=== PATIENT | male | born 1970 | race Caucasian/White ===

== ENCOUNTER 2025-01-26 17:12 | Inpatient (IN) | payer BC, SELFPAY ==
[2025-01-26] VITALS (8 sets, daily range): BP systolic 118–154; BP diastolic 67–95; PULSE 63–98; RESP 14–18; TEMP 36.2–36.7; O2SAT 96–99; BMI 25.4
--- NOTE | 2025-01-26 18:05 | XRR_ITS ---
PROCEDURE INFORMATION: Exam: XR Chest Exam date and time: 01/26/2025 6:08 PM Age: 54 years old Clinical indication: Pain; Chest pressure; Additional info: Cp TECHNIQUE: Imaging protocol: Radiologic exam of the chest. Views: 1 view. COMPARISON: No relevant prior studies available. FINDINGS: Lungs: Unremarkable. No consolidation. Pleural spaces: Unremarkable. No pleural effusion. No pneumothorax. Heart/Mediastinum: Unremarkable. No cardiomegaly. Bones/joints: Ndui-ma-ekibmyme degenerative changes of vertebral bodies. Mild degenerative changes of the AC joint. Single-view. XR/XR chest 1V portable [id number] IMPRESSION: No definite acute infiltrate or effusion.
--- NOTE | 2025-01-26 18:05 | ECG_ITS ---
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
[2025-01-26 18:11] LABS: Hematocrit 43.2 % (37-53); Hemoglobin 14.10 g/dL (11.27-16.99); Mean Corpuscular HGB Conc 32.6 g/dL (30-55); Mean Corpuscular Hemoglobin 27.0 pg (27-33); Mean Corpuscular Volume 82.6 fl (82-101); Nucleated Red Blood Cells % 0 %; Platelet Count 232 10^3/cmm (157-399); Red Blood Count 5.23 10^6/uL (3.85-5.65); White Blood Count 10.12 10^3/uL (3.29-11.43)
[2025-01-26 18:28] LABS: Alanine Aminotransferase 43 U/L (0-41); Albumin Level 4.7 g/dL (3.5-5.2); Alkaline Phosphatase 82 U/L (40-130); Anion Gap 18.8 (5-19); Aspartate Amino Transferase 25 U/L (0-40); Blood Urea Nitrogen 14 mg/dL (6-20); Calcium 9.6 mg/dL (8.5-10.5); Carbon Dioxide 22 mmol/L (22-29); Chloride 104 mmol/L (98-107); Creatinine Clr Calc Pharmacy 131.0440; Globulin 2.6 g/dL (1.3-4.6); Glucose 96 mg/dL (65-115); Osmolality Calculated 292 mOsm/kg (285-295); Potassium 3.8 mmol/L (3.5-5.1); Sodium 141 mmol/L (136-145); Total Protein 7.3 g/dL (6.6-8.7)
[2025-01-26 18:29] LABS: Troponin(5th) Baseline 7 ng/L (0-15)
--- NOTE | 2025-01-26 19:20 | PC.NURSE ---
patient bp 113/70 -- per mendez, hold nitro paste
[2025-01-26] MEDS: heparin 5,000 unit/mL INJ 1 mL IVP (19:29)
[2025-01-26] MEDS: heparin drip 25,000 UNIT/500 ML PREMIX 27 UNIT IV (19:30)
--- NOTE | 2025-01-26 19:42 | ED_ITS ---
Documented by User: RAJNI Barnes 01/26/25 20:34 HPI - Chest Pain 2 General: Chief Complaint: Chest Pain Stated Complaint: chest tightness - dizziness Time Seen by Provider: 01/26/25 17:52 Source: patient Mode of arrival: EMS Limitations: no limitations History of Present Illness: Patient is a 54-year-old male with past medical history of hypertension, non- smoker, presented to the emergency department with acute onset chest pain while driving today around 1530. States that he was driving on the way to go [facility], when he had onset of pain in the left arm that radiated across to his chest down his right arm, initially noted to be shooting/tingling. Denies any personal cardiac history, no history of heart attacks or strokes, no family history of cardiac disease at an early age. He states that he has had 2 normal stress tests in the past, but it has been greater than 5 years. He also notes symptoms of dizziness and lightheadedness, shortness of breath, and worsening chest pain with exertion. He did call the ambulance as the pain persisted, and they gave 324 aspirin prehospital as well as 2 sublingual nitroglycerin that has only minimally resolved the patient's pain. He states at this time it still feels like a pressure in the center part of his chest, no radiation into the back or neck/jaw. Reportedly with EMS he was hypertensive at 180s systolic, but currently blood pressure has normalized and the rest of his vitals are stable. Appears nontoxic in no active distress. He does not have cardiology, states he is from [place] and this is where his primary care provider is. MD complaint: chest pain Onset (ago): hour(s) Timing of current episode: constant and still present Prior episodes: No Onset: during rest Pain location: left chest and right chest Pain radiation: right arm and left arm Severity: severe Quality: shooting (Tingling) and other (Pressure) Relieving factors: nothing Exacerbating factors: exertion and inspiration Associated symptoms: Reports dyspnea; Deny abdominal pain, fever(s), nausea, palpitations or vomiting Treatment prior to arrival: aspirin and nitroglycerin Related Data Home Medications ?Medication ?Instructions ?Recorded ?Confirmed No Known Home Medications 01/26/2501/17 Allergies Allergy/AdvReac Type Severity Reaction Status Date / Time ciprofloxacin Allergy rash Verified 01/26/25 16:12 Sulfa (Sulfonamide Allergy rash Verified 01/26/25 16:12 Antibiotics) Review of Systems 2 General: Reports: 10 or more systems reviewed and unremarkable except in HPI and below Const: Denies: fever(s), chills or fatigue Eyes: Denies: change in vision ENMT: Denies: throat pain, ear or mastoid pain or nasal discharge Card: Reports: chest pain and lightheadedness; Denies: palpitations or swelling of feet/ankles Resp: Reports: dyspnea; Denies: productive cough or wheezing GI: Denies: abdominal pain, nausea, vomiting, diarrhea or constipation : Denies: flank pain, difficulty urinating, dysuria or urinary frequency Musc: Denies: neck pain, back pain or joint pain Skin/Breast: Denies: rash Neuro: Reports: dizziness; Denies: headache(s), numbness in extremities or weakness in extremities PFSH ED 2 PFSH: Social History Smoking and tobacco/nicotine status: never used tobacco/nicotine Physical Exam 2 Const: COMMON NORMALS: no acute distress, patient oriented x3 and no limitations GENERAL APPEARANCE: cooperative, comfortable and well developed ORIENTATION/CONSCIOUSNESS: Yes awake, Yes oriented to person, Yes oriented to place and Yes oriented to time HENMT: COMMON NORMALS: normocephalic, atraumatic and hearing grossly normal bilaterally HEAD & SCALP: normocephalic and atraumatic Eye: COMMON NORMALS: Equal, round and reactive pupils present, EOMs intact bilaterally and conjunctivae normal CONJUNCTIVA: Yes conjunctivae normal P UPIL: Yes Equal, round and reactive pupils present Neck/C-Spine: COMMON NORMALS: full ROM, supple and no JVD Resp: COMMON NORMALS: normal respiratory effort, No retractions, No use of accessory muscles and clear to auscultation bilaterally AUSCULTATION: clear to auscultation bilaterally Cardio: COMMON NORMALS: no JVD, regular rate, regular rhythm, No clicks present (Cardio), No murmurs present (Cardio) and No rub (Cardio) RATE: r egular rate RHYTHM: regular rhythm GI: COMMON NORMALS: Normal to inspection, nondistended, normoactive bowel sounds present, Soft to palpation and non-tender AUSCULTATION: Yes normoactive bowel sounds PALPATION: Yes Soft to palpation RECTAL EXAM: Yes deferred Extremity: COMMON NORMALS: normal to inspection, full ROM and capillary refill normal Neuro: COMMON NORMALS: patient oriented x3, moves all extremities, no focal motor deficits and no sensory deficits noted SENSORIUM/ORIENTATION: Yes oriented to person, Yes oriented to place and Yes oriented to time Skin: COMMON NORMALS: no rashes or lesions noted GENERAL SKIN EXAM: no rashes or lesions noted Course 2 Vital Signs: Vital signs: Vital Signs Temperature 98.2 F 01/27/25 03:13 Pulse Rate 63 01/27/25 03:13 Respiratory Rate 20 H 01/27/25 03:13 Blood Pressure 140/86 01/27/25 03:13 Pulse Oximetry 96 01/27/25 03:13 Oxygen Delivery Me thod Room Air 01/27/25 03:13 MDM - Chest Pain Medical Decision Making Patient presented by ambulance for chest pain that began a few hours prehospital. Active chest pain at time of examination, however no comorbid conditions and no history of cardiac disease. He was given 324 aspirin and 2 nitro prehospital, his physical exam is unremarkable as he is in no acute distress and vitals are stable specifically blood pressure of which he notes he was significantly elevated with with EMS. Here his chest x-ray shows no mediastinal widening or other acute cardiothoracic process, EKG showing no STEMI, and his initial and repeat troponin are both negative. He is still having pain despite receiving nitroglycerin here, and after speaking with Dr. De Leon, on-call cardiology, recommending we start on heparin and Plavix and admit to hospitalist services as he will consult in the morning. I spoke to Dr. Rodgers, hospitalist, agreed to accept the patient into the hospital. Patient is informed of this plan for further ACS rule out, of which he agrees with decision for hospitalization and all of the questions and concerns addressed. Dr. Rapp is informed of this patient's case, who is putting in admit orders at this time. Lab Data 01/26/25 17:55 01/26/25 17:55 Radiology Impressions Chest X-Ray 01/26/25 18:05 IMPRESSION: No definite acute infiltrate or effusion. Laboratory Results WBC 10.12 10^3/uL (3.29-11.43) 01/26/25 17:55 RBC 5.23 10^6/uL (3.85-5.65) 01/26/25 17:55 Hgb 14.10 g/dL (11.27-16.99) 01/26/25 17:55 Hct 43.2 % (37-53) 01/26/25 17:55 MCV 82.6 fl (82-101) 01/26/25 17:55 MCH 27.0 pg (27-33) 01/26/25 17:55 MCHC 32.6 g/dL (30-55) 01/26/25 17:55 RDW 12.6 % (12.1-15.1) 01/26/25 17:55 Plt Count 232 10^3/cmm (157-399) 01/26/25 17:55 MPV 9.8 fL (7.4-10.4) 01/26/25 17:55 Neut % (Auto) 71.9 % 01/26/25 17:55 Lymph % (Auto) 17.0 % 01/26/25 17:55 Spencer % (Auto) 7.5 % 01/26/25 17:55 Eos % (Auto) 2.8 % 01/26/25 17:55 Baso % (Auto) 0.4 % 01/26/25 17:55 Neut # (Auto) 7.28 10^3/uL (1.8-7.7) 01/26/25 17:55 Lymph # (Auto) 1.7 10^3/uL (0.8-4.8) 01/26/25 17:55 Spencer # (Auto) 0.8 10^3/uL (0.2-0.9) 01/26/25 17:55 Eos # (Auto) 0.3 10^3/uL (0.0-0.8) 01/26/25 17:55 Baso # (Auto) 0.0 10^3/uL (0.0-0.1) 01/26/25 17:55 Nucleated RBC % (auto) 0 % 01/26/25 17:55 Nucleated RBCs # 0.0 /100WBC 01/26/25 17:55 Sodium 141 mmol/L (136-145) 01/26/25 17:55 Potassium 3.8 mmol/L (3.5-5.1) 01/26/25 17:55 Chloride 104 mmol/L (98-107) 01/26/25 17:55 Carbon Dioxide 22 mmol/L (22-29) 01/26/25 17:55 Anion Gap 18.8 (5-19) 01/26/25 17:55 BUN 14 mg/dL (6-20) 01/26/25 17:55 Creatinine 0.8 mg/dL (0.7-1.2) 01/26/25 17:55 GFR Calculation 100.4 mL/min (90-130) 01/26/25 17:55 Glucose 96 mg/dL (65-115) 01/26/25 17:55 Calculated Osmolality 292 mOsm/kg (285-295) 01/26/25 17:55 Calcium 9.6 mg/dL (8.5-10.5) 01/26/25 17:55 Total Bilirubin 0.7 mg/dL (0.15-1.2) 01/26/25 17:55 AST 25 U/L (0-40) 01/26/25 17:55 ALT 43 U/L (0-41) H 01/26/25 17:55 Alkaline Phosphatase 82 U/L (40-130) 01/26/25 17:55 Troponin T Baseline 7 ng/L (0-15) 01/26/25 17:55 Troponin T 120 Minute 6.91 ng/L (0-15) 01/26/25 19:57 Delta Troponin T -0.09 ABS# (0-10) L 01/26/25 19:57 Total Protein 7.3 g/dL (6.6-8.7) 01/26/25 17:55 Albumin 4.7 g/dL (3.5-5.2) 01/26/25 17:55 Globulin 2.6 g/dL (1.3-4.6) 01/26/25 17:55 All radiology interpretation(s) finalized by discharge Discharge Plan Discharge Patient Disposition: Admitted As Inpatient Admit Provider: Shanthi Rodgers Clinical Impression: Atypical chest pain Condition: Stable Coding Level of Care Code ED 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 Mechanic Millwright for g Fwcarlos Heart Score HEART Score Components History: Highly Suspicious EKG: Non-specific Changes Age: 45-64 yrs Risk Factors: No Risk Factors Known Troponin: Baseline Trop <16 ng/L HEART Score RESULT HEART Score: 4 Documented by User: Mynor John DO Dionte 01/27/25 03:41 HPI - Chest Pain 2 General: Chief Complaint: Chest Pain Stated Complaint: chest tightness - dizziness Time Seen by Provider: 01/26/25 17:52 Related Data Home Medications ?Medication ?Instructions ?Recorded ?Confirmed No Known Home Medications 01/26/2501/17 Allergies Allergy/AdvReac Type Severity Reaction Status Date / Time ciprofloxacin Allergy rash Verified 01/26/25 16:12 Sulfa (Sulfonamide Allergy rash Verified 01/26/25 16:12 Antibiotics) PFSH ED 2 PFSH: Social History Smoking and tobacco/nicotine status: never used tobacco/nicotine Course 2 Vital Signs: Vital signs: Vital Signs Temperature 98.2 F 01/27/25 03:13 Pulse Rate 63 01/27/25 03:13 Respiratory Rate 20 H 01/27/25 03:13 Blood Pressure 140/86 01/27/25 03:13 Pulse Oximetry 96 01/27/25 03:13 Oxygen Delivery Me thod Room Air 01/27/25 03:13 MDM - Chest Pain Medical Decision Making Patient presented by ambulance for chest pain that began a few hours prehospital. Active chest pain at time of examination, however no comorbid conditions and no history of cardiac disease. He was given 324 aspirin and 2 nitro prehospital, his physical exam is unremarkable as he is in no acute distress and vitals are stable specifically blood pressure of which he notes he was significantly elevated with with EMS. Here his chest x-ray shows no mediastinal widening or other acute cardiothoracic process, EKG showing no STEMI, and his initial and repeat troponin are both negative. He is still having pain despite receiving nitroglycerin here, and after speaking with Dr. De Leon, on-call cardiology, recommending we start on heparin and Plavix and admit to hospitalist services as he will consult in the morning. I spoke to Dr. Rodgers, hospitalist, agreed to accept the patient into the hospital. Patient is informed of this plan for further ACS rule out, of which he agrees with decision for hospitalization and all of the questions and concerns addressed. Dr. Rapp is informed of this patient's case, who is putting in admit orders at this time. This patient was originally seen by Mr. Sola PA-C. I agree with his history, evaluation, and treatment. Lab Data 01/26/25 17:55 01/26/25 17:55 Radiology Impressions Chest X-Ray 01/26/25 18:05 IMPRESSION: No definite acute infiltrate or effusion. Laboratory Results WBC 10.12 10^3/uL (3.29-11.43) 01/26/25 17:55 RBC 5.23 10^6/uL (3.85-5.65) 01/26/25 17:55 Hgb 14.10 g/dL (11.27-16.99) 01/26/25 17:55 Hct 43.2 % (37-53) 01/26/25 17:55 MCV 82.6 fl (82-101) 01/26/25 17:55 MCH 27.0 pg (27-33) 01/26/25 17:55 MCHC 32.6 g/dL (30-55) 01/26/25 17:55 RDW 12.6 % (12.1-15.1) 01/26/25 17:55 Plt Count 232 10^3/cmm (157-399) 01/26/25 17:55 MPV 9.8 fL (7.4-10.4) 01/26/25 17:55 Neut % (Auto) 71.9 % 01/26/25 17:55 Lymph % (Auto) 17.0 % 01/26/25 17:55 Spencer % (Auto) 7.5 % 01/26/25 17:55 Eos % (Auto) 2.8 % 01/26/25 17:55 Baso % (Auto) 0.4 % 01/26/25 17:55 Neut # (Auto) 7.28 10^3/uL (1.8-7.7) 01/26/25 17:55 Lymph # (Auto) 1.7 10^3/uL (0.8-4.8) 01/26/25 17:55 Spencer # (Auto) 0.8 10^3/uL (0.2-0.9) 01/26/25 17:55 Eos # (Auto) 0.3 10^3/uL (0.0-0.8) 01/26/25 17:55 Baso # (Auto) 0.0 10^3/uL (0.0-0.1) 01/26/25 17:55 Nucleated RBC % (auto) 0 % 01/26/25 17:55 Nucleated RBCs # 0.0 /100WBC 01/26/25 17:55 Sodium 141 mmol/L (136-145) 01/26/25 17:55 Potassium 3.8 mmol/L (3.5-5.1) 01/26/25 17:55 Chloride 104 mmol/L (98-107) 01/26/25 17:55 Carbon Dioxide 22 mmol/L (22-29) 01/26/25 17:55 Anion Gap 18.8 (5-19) 01/26/25 17:55 BUN 14 mg/dL (6-20) 01/26/25 17:55 Creatinine 0.8 mg/dL (0.7-1.2) 01/26/25 17:55 GFR Calculation 100.4 mL/min (90-130) 01/26/25 17:55 Glucose 96 mg/dL (65-115) 01/26/25 17:55 Calculated Osmolality 292 mOsm/kg (285-295) 01/26/25 17:55 Calcium 9.6 mg/dL (8.5-10.5) 01/26/25 17:55 Total Bilirubin 0.7 mg/dL (0.15-1.2) 01/26/25 17:55 AST 25 U/L (0-40) 01/26/25 17:55 ALT 43 U/L (0-41) H 01/26/25 17:55 Alkaline Phosphatase 82 U/L (40-130) 01/26/25 17:55 Troponin T Baseline 7 ng/L (0-15) 01/26/25 17:55 Troponin T 120 Minute 6.91 ng/L (0-15) 01/26/25 19:57 Delta Troponin T -0.09 ABS# (0-10) L 01/26/25 19:57 Total Protein 7.3 g/dL (6.6-8.7) 01/26/25 17:55 Albumin 4.7 g/dL (3.5-5.2) 01/26/25 17:55 Globulin 2.6 g/dL (1.3-4.6) 01/26/25 17:55 Discharge Plan Discharge Patient Disposition: Admitted As Inpatient Admit Provider: Shanthi Rodgers Clinical Impression: Atypical chest pain Condition: Stable Coding Level of Care Code ED Maintenance Mechanic Millwright for Chg Fwd Heart Score HEART Score RESULT HEART Score: 4
--- NOTE | 2025-01-26 20:07 | ECG_ITS ---
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
[2025-01-26 20:19] LABS: Troponin 5 2HR 6.91 ng/L (0-15)
[2025-01-26 20:26] LABS: Troponin 5 2HR Delta -0.09 ABS# (0-10)
--- NOTE | 2025-01-26 20:39 | P.HP_ITS ---
Providers/Chief Complaint 2 Admitting Physician: LEE RODGERS--DO--patient seen and evaluated before 12 midnight Chief Complaint: chest tightness - dizziness History of Present Illness Mook Garces is a 54 year old male with no significant medical history who suddenly today started having a concerning chest pain that had radiated to both arms while he was driving. Patient got symptomatic short of breath very lightheaded where he started developing tunnel vision losing some peripheral vision. The told him to clod puller on the [place]. A good Holiness took him to the nearest urgent care patient vitals and preliminary care was given while patient awaits for EMS. Upon the EMS arriving, patient was given full aspirin and 2 nitro spray but this did not take it with the pain. Upon arriving to on ED patient was given 1 sublingual nitro and that was able to take it while the pain. The emergency room attending Dr. Ian Selby called for cardiology Dr. Ray, presented the patient and he was directed to give patient a loaded Plavix of 600 mg and to start the patient on heparin drip and he we will see the patient in the morning for a cardiac catheterization. Hospitalist was consulted by Dr. Ian Selby to evaluate patient for admission. I have seen and evaluated patient in the emergency room patient does not have medical history patient is a male and also a middle-age male hide the patient has 2 risk factors. With such chest pain with symptomatology and being the first time patient indeed had an unstable angina. Patient was admitted to stepdown unit be n.p.o. after midnight except for medication and sips of water. 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 Ray for care I have also ordered echocardiogram on this patient and ordered fasting lipid panel. I also had the patient on statin Review of Systems 2 Narrative: System review upon 10 organ system reviewed was essentially unremarkable except for cardiovascular with chest pain. Chest pain is resolved and patient on heparin drip Medications/Allergies Home Medications ?Medication ?Instructions ?Recorded ?Confirmed ?Last Taken ?Type No Known Home Medications 01/26/2501/17 Unknown History Allergies Allergy/AdvReac Type Severity Reaction Status Date / Time ciprofloxacin Allergy rash Verified 01/26/25 16:12 Sulfa (Sulfonamide Allergy rash Verified 01/26/25 16:12 Antibiotics) PFSH Acute 2 PFSH: Social History Smoking and tobacco/nicotine status: never used tobacco/nicotine Vitals/I&O/Wt Last Vital Signs Temp 98.0 F 01/26/25 17:10 Pulse 69 01/26/25 20:06 Resp 18 01/26/25 20:06 BP 118/68 01/26/25 20:06 Pulse Ox 98 01/26/25 20:06 O2 Del Method Room Air 01/26/25 20:06 Weight last 48 hrs Weight 95.254 kg Physical Exam 2 Narrative: General the patient is sitting up in the room on his bed in the emergency room and chest pain-free and has heparin drip already ongoing. Patient not rated the medical history to me the presents medical history and the complaints feeling much better. HEENT normocephalic/atraumatic neck neck is supple cardiovascular heart rate is regular lungs are pretty much clear abdomen soft nontender nondistended unremarkable extremities are intact no edema has good pulses neurology has no focality lab studies lab studies reviewed and noted. Data 01/26/25 17:55 01/26/25 17:55 A&P Assessment and plan 1. Angina at rest: 2. Hypertension: 3. Dehydration: Plan: #1 Unstable angina - Patient with initial chest pain with noted symptomatology and that had lasted longer than 1 hour - Troponin negative - Because of persistent chest pain despite all medical care, cardiology directed to have patient loaded with 600 mg of Plavix and with initiation of heparin drip - Admit patient to stepdown unit for close monitoring - Place patient on nitro paste to anterior chest wall 1 inch Q6 - Echocardiogram, fasting lipid panel in a.m. ordered, - Patient stays n.p.o. after 12 midnight except for sips of water with medication for cardiac catheterization - Continue gentle hydration at this time with normal saline at 100/h #2 Dehydration - Optimizing care in preparation of cardiac catheterization to care for the kidney #3 GI and DVT prophylaxis in place #4 At risk for hyperlipidemia - Fasting lipid ordered for the morning PDMP PDMP Reviewed: Not Reviewed Attestations 2 Medical Necessity Statement*: Patient with unstable angina requiring cardiac catheterization in the morning with cardiology consultation with need for possibly 2 midnights for further optimization of care Coding Level of Care Code 50290 Diagnoses Angina at rest I20.89 Hypertension I10 Dehydration E86.0 Time Spent (min) 60
--- NOTE | 2025-01-27 00:05 | ECG_ITS ---
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
[2025-01-27 01:16] LABS: Troponin 5 6HR 7.67 ng/L (0-15); Troponin 5 6HR Delta 0.67 ng/L (0-12)
[2025-01-27 03:13] VITALS: BP 140/86; PULSE 63; RESP 20; TEMP 36.8; O2SAT 96
[2025-01-27 03:15] LABS: Partial Thromboplastin Time 158.2 SECONDS (23.9-36.7)
[2025-01-27 04:30] LABS: Hematocrit 40.7 % (37-53); Hemoglobin 13.10 g/dL (11.27-16.99); Mean Corpuscular HGB Conc 32.2 g/dL (30-55); Mean Corpuscular Hemoglobin 27.2 pg (27-33); Mean Corpuscular Volume 84.6 fl (82-101); Nucleated Red Blood Cells % 0 %; Platelet Count 200 10^3/cmm (157-399); Red Blood Count 4.81 10^6/uL (3.85-5.65); White Blood Count 6.78 10^3/uL (3.29-11.43)
[2025-01-27 05:05] LABS: Partial Thromboplastin Time 124.5 SECONDS (23.9-36.7)
[2025-01-27 05:06] LABS: Cholesterol 151 mg/dL (0-200); HDL Cholesterol 38 mg/dL (60-100); Triglycerides 139 mg/dL (0-150)
[2025-01-27 05:30] LABS: Alanine Aminotransferase 38 U/L (0-41); Albumin Level 4.1 g/dL (3.5-5.2); Alkaline Phosphatase 76 U/L (40-130); Anion Gap 17.6 (5-19); Aspartate Amino Transferase 22 U/L (0-40); Blood Urea Nitrogen 19 mg/dL (6-20); Calcium 8.6 mg/dL (8.5-10.5); Carbon Dioxide 22 mmol/L (22-29); Chloride 105 mmol/L (98-107); Creatinine Clr Calc Pharmacy 147.9067; Globulin 2.0 g/dL (1.3-4.6); Glucose 102 mg/dL (65-115); Magnesium 2.1 mg/dL (1.7-2.3); Osmolality Calculated 294 mOsm/kg (285-295); Potassium 3.6 mmol/L (3.5-5.1); Sodium 141 mmol/L (136-145); Total Protein 6.1 g/dL (6.6-8.7)
[2025-01-27 05:59] VITALS: BMI 25.4
[2025-01-27 07:39] VITALS: BP 145/94; PULSE 78; RESP 22; TEMP 36.7; O2SAT 97
--- NOTE | 2025-01-27 07:58 | P.CONIM_ITS ---
Providers/Reason For Consult 2 Consulting Physician/Specialty*: Georgi Ray MD / Cardiology Reason for Consult*: Worsening angina Requesting Physician: Dr Rapp Attending Physician: She Montero MD History of Present Illness History of Present Illness Mook Garces is a 54 year old male with past medical history of hypertension who was driving yesterday and started having severe chest pain. The patient pain was radiated to both arms. Went on and off for several hours. Troponins have not increased. EKG shows sinus rhythm. On telemetry, PVCs seen. Review of Systems 2 Card: Reports: chest pain Medications/Allergies Home Medications ?Medication ?Instructions ?Recorded ?Confirmed ?Last Taken ?Type No Known Home Medications 01/26/2501/17 Unknown History Allergies Allergy/AdvReac Type Severity Reaction Status Date / Time ciprofloxacin Allergy rash Verified 01/26/25 16:12 Sulfa (Sulfonamide Allergy rash Verified 01/26/25 16:12 Antibiotics) Current Medications Generic Name Dose Route Start Last Admin Trade Name Freq PRN Reason Stop Dose Admin Heparin Sodium/Sodium Chloride 25,000 unit in 500 mls @ 0 mls/hr 01/26/25 19:00 01/27/25 05:54 Heparin Drip IV 9.45 unit/kg/hr CONT CHON 18 mls/hr Protocol Titration Per Protocol Sodium Chloride 1,000 mls @ 100 mls/hr 01/26/25 20:45 01/27/25 07:17 Sodium Chloride 0.9% IV 100 mls/hr .Q10H CHON Administration PFSH Acute 2 PFSH: Medical History (Updated 01/27/25 @ 10:45 by Georgi Ray M.D) Hypertension Social History Smoking and tobacco/nicotine status: never used tobacco/nicotine Vitals/I&O/Wt Last Vital Signs Temp 98.0 F 01/27/25 07:39 Pulse 78 01/27/25 07:39 Resp 22 H 01/27/25 07:39 BP 145/94 01/27/25 07:39 Pulse Ox 97 01/27/25 07:39 O2 Del Method Room Air 01/27/25 03:13 01/26/25 01/27/25 01/27/25 22:59 06:59 14:59 Intake Total 1211.95 / 1211.95 Balance 1211.95 / 1211.95 Weight last 48 hrs Weight 203 lb 14.841 oz Weight 203 lb 14.841 oz Weight 210 lb Physical Exam 2 Narrative: GENERAL: Patient is alert, awake and oriented x3. [] NECK: No jugular vein distension. [] HEENT: No cyanosis. No icterus. No pallor. [] HEART: Regular S1 and S2. No murmur, rub or gallop. [] LUNGS: Clear to auscultate bilaterally. [] CENTRAL NERVOUS SYSTEM: Grossly nonfocal. [] EXTREMITIES: Lower extremities with no edema bilaterally. Data 01/27/25 03:36 01/27/25 03:36 A&P Assessment and plan 1. Angina at rest: 2. Hypertension: Plan: Patient has been having on and off chest pain symptoms since yesterday. Typical symptoms. Has frequent PVCs. Will proceed with coronary angiogram with possible PCI. Blood pressure was elevated. Will need to start beta mary ellen. Thank you for involving us with care of this patient. We will continue to follow. Please call with questions PDMP PDMP Reviewed: Not Reviewed Consult Attestations 2 Medical Necessity Statement: Care expected to cross 2 midnights. Coding Level of Care Code Acute Code for g Fwd Diagnoses Angina at rest I20.89 Hypertension I10
[2025-01-27 08:37] LABS: Estmated Average Glucose 111; Hemoglobin A1C 5.5 % (4.0-6.0)
--- NOTE | 2025-01-27 08:37 | XACV_ITS ---
Exam Room: [facility] Ht: 191 cm Wt: 92 kg BSA: 2.21 m2 Gender: Male : 1970 Any Known Allergies: Other Exam Priority: Routine Procedure(s): Procedure Description: Diagnostic procedure Procedure Description: Left Heart Catheterization Procedure Description: Left ventriculography Procedure Description: Coronary Angiography Diagnostic Cath Status: Urgent Diagnostic Findings * No significant disease noted in the Left Main, Left Anterior Descending, Right, or Circumflex coronary arteries. * Coronary angiography shows left dominance. Conclusions 1. No significant disease noted in the Left Main, Left Anterior Descending, Right, or Circumflex coronary arteries. 2. Normal left ventricular systolic function. Ejection fraction of 55%. Recommendations * Aggressive risk factor modification. Blood pressure control. Interventional RX Recommendation: medical therapy and/or counseling Diagnostic RX Recommendation: medical therapy and/or counseling Anticoagulation: Heparin Ventriculography Ejection Fraction: 55.0 % Pressures Phase:Rest AO : 116 / 75 ( 92 ) @ 10:23:00 AM 127 / 72 ( 94 ) @ 10:30:00 AM 127 / 72 ( 94 ) @ 10:30:00 AM LV : 142 / -12 / 10 @ 10:28:00 AM 135 / -8 / 12 @ 10:30:00 AM 136 / -8 / 12 @ 10:30:00 AM Valves Phase:DefaultPhase AV : 9.0 @ 9:34:38 AM 9.0 @ 9:34:38 AM AV Mean Gradient: 15.0 @ 9:34:38 AM Clinical Evaluation EBL: 5mL-10mL Procedural Details Procedure Consent Obtained. Pre-Procedure Time Out. Identified patient by full name and date of as verbalized by the patient/guarantor. Does the consent match the physician's order: Yes. Accurate & Complete Informed Consent: Yes. Inpatient/Outpatient History & Physical on Chart: Yes. If H&P is completed, is and addenduem needed: No. Visualize and Verify Site with Patient/Guarantor: N/A. Relevant Radiology Images available: Yes. The risks, benefits, and alternatives of sedation and/or procedure were discussed by physician. The patient agrees to continue. Procedure started. [facility] Clinical Fraility Score: 3: Managing Well. 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 Chest Pain Symptom Assessment: Typical Angina Symptoms. Cardiovascular Instability: No. Correct patient, site and procedure confirmed by cath team. PERRLA. Strong, equal hand hide selector bilaterally. Lungs clear x 5 lobes. IV Site on Arrival: 20 gauge in the left anticubital. IV Site on Arrival: 20 gauge in the right anticubital. IV Fluids: 0.9% NaCl at KVO. 0 mL infused prior to crime lab technician. Pre Procedural Pulses: bilateral dorsalis pedis was Doppled. Pre Procedural Pulses: bilateral posterior tibial was Doppled. Pre Procedural Pulses: right radial was 3+. Oxygen started at 2liters/min via nasal canula. right groin was prepped with chloroprep then draped in the usual sterile fashion. right radial was prepped with chloroprep then draped in the usual sterile fashion. Physician notified. Baseline sample Acquired. HR: 75 BPM. Patient's family in the crime lab technician waiting room. Dr. Storey will update at he completion of the procedure. Equipment: 6F - Radial. Cardiac Cath Pack. ACIST Manifold Kit Model BT 2000. Heparinized Saline (2 units/mL), 1000 mL bag. Physician arrived. Physician scrubbed in. Immediate Pre-Procedure Time Out. Correct Patient: Yes; Correct Procedure: Yes; Correct Site: Yes; Correct Patient Position: Yes; Correct Supplies: Yes; Dried Flammable Prep: Yes; Blood Products Available: N/A. Lidocaine 1% infiltrated to the right radial. Arterial access obtained. A 5 hungarian TIG catheter in over the exchange J wire. Multiple views taken of left coronary artery. Catheter redirected to the RCA. Multiple views taken of right coronary artery. Catheter removed over the exchange J wire. A 5 hungarian Angled Pig catheter in over the exchange J wire. EDP Sample taken: LV 142/-13,10; HR: 77 BPM; SpO2: 96%. LV gram performed in PINA @ 10 mL/second for a total of 30 mL. EDP Sample taken: LV 135/-9,12; HR: 78 BPM; SpO2: 97%. Pullback taken: LV 136/-9,12; AO 127/72(94); Mean: 15mmHg, Peak to Peak: 9mmHg, SEP: 19sec/min; HR: 78 BPM; SpO2: 97%. Catheter removed over the exchange J wire. Dr Ray scrubbed out. Vital chart was stopped. A TR Band was successful obtaining hemostatsis at the Right Radial artery insertion site. Post Procedure: Pulses reassessed and unchanged. PERRLA. Strong, equal hand hide selector bilaterally. No VTE prophylaxis required. Medication's Wasted: Lidocaine 1% = 18 mL. Medication's Wasted: Nitro = 49.8 mg. Medication's Wasted: Heparin = 3000 units. Medication's Wasted: Other = Fentanyl 50 mcg. Total IV fluids: 30 mL. Post-op diagnosis: Non-obstructive CAD. Complications: none. Estimated blood loss: 5mL-10mL. Responsiveness - Normal response to verbal stimuli; alert and oriented, PERRLA. Airway - Unaffected, no intervention required; spontaneous ventilation. Circulation: W/N/L, pulses unchanged. Nausea/Vomiting: No. Procedure completed. Patient transferred by bed to 1st floor. Access Site Site: Right Radial artery Sheath Size: 6 Fr Hemostasis Method: TR Band Hemostasis Success: Successful Procedure Medications Start: 9:13 AM Stop: 9:13 AM Medication: Benadryl Amount: 25 mg Route: I.V. Start: 9:14 AM Stop: 9:14 AM Medication: Versed Amount: 1 mg Route: I.V. Start: 9:15 AM Stop: 9:15 AM Medication: Fentanyl Amount: 50 mcg Route: I.V. Start: 9:17 AM Stop: 9:17 AM Medication: Versed Amount: 1 mg Route: I.V. Start: 9:20 AM Stop: 9:20 AM Medication: Nitrogylcerin Amount: 200 mcg Route: I.A. Start: 9:22 AM Stop: 9: AM Medication: Versed Amount: 1 mg Route: I.V. Start: 9:23 AM Stop: 9:23 AM Medication: Heparin Amount: 3000 units Route: I.V. I, the attending physician, have reviewed and verified all procedure medications. Yes, all medications given per verbal order History/Risk Factors Hypertension: Yes Dyslipidemia: No Peripheral Arterial Disease (PAD): No Myocardial Infarction ([place]): No Obesity: No Renal Disease: No Tobacco Use: Never Prior Interventions PCI: No CABG: No Valve Surgery: No Report Signatures Finalized by Georgi Ray MD on 01/27/2025 10:35 AM
--- NOTE | 2025-01-27 09:15 | W.PM.OPSUD ---
Surgery/Procedure H&P Update DATE OF PROCEDURE: January 27, 2025 DATE H&P PERFORMED: 01/27/25 H&P UPDATE INFORMATION: I have reviewed H&P completed within last 30 days, I have examined patient prior to procedure and No changes to prior documentation PREOP DIAGNOSIS: Worsening angina PRIMARY INDICATION FOR PROCEDURE: Worsening angina PLANNED PROCEDURE: left heart cath with possible percutaneous coronary intervention PATIENT REASSESSED PRIOR TO SEDATION, WITH NO CHANGE NOTED: Yes PHYSICAL EXAM: alert, oriented x 3, clear to auscultation bilaterally and regular rate & rhythm AIRWAY EVAL/ANESTHESIA PLAN: normal airway, ASA III, Local Anesthesia, Risks, benefits & alternatives of sedation and/or procedure discussed and Patient agrees to continue as planned ADDITIONAL INFORMATION: Moderate sedation
--- NOTE | 2025-01-27 09:40 | PM.PROC ---
Procedure Note: Date of procedure: 01/27/25 Pre-procedure diagnosis: Worsening angina Post-procedure diagnosis: other Procedure: Patent coronary arteries Aggressive blood pressure control. Start metoprolol 25mg BID as is getting symptomatic PVCs. Performing Provider: Georgi Ray Complications: None Condition: stable Disposition: floor Coding Level of Care Code Acute Code for Yvrose Fwcarlos
[2025-01-27 12:00] VITALS: BP 125/79; BP 136/85; PULSE 66; PULSE 72; RESP 10; RESP 18; TEMP 36.6; O2SAT 97
[2025-01-27 12:27] LABS: Partial Thromboplastin Time 37.0 SECONDS (23.9-36.7)
--- NOTE | 2025-01-27 12:34 | P.DS_ITS ---
Discharge Providers Date of Admission: 01/26/25 20:31 Date of Discharge: January 27, 2025 Attending Provider at Admission: Shanthi Rodgers MD Attending Provider at Discharge: She Montero MD Consults: Inpatient consult to cardiology Diagnoses at Discharge Discharge Diagnosis 1. Angina at rest: 2. Frequent PVCs: 3. Hypertension: Reason for Visit Reason for Visit: chest tightness - dizziness Brief History: This is a 54-year-old male with hypertension who developed severe chest pain while driving. The pain was intermittent over a few hours. His troponin was normal and ECG did not show any acute ischemic changes. Hospital Course Hospital Course Cardiology was consulted and did left heart catheterization which did not show any significant coronary disease. He did have frequent PVCs. Cardiology recommended starting metoprolol. He lives out of town and has an appointment with his PCP on Wednesday. Consider outpatient cardiac monitoring. 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 echo complete* [id number] Stat Ultrasound 01/27/25 20:36 Completed Pending at discharge Category Date Time Status PTT [Partial Thromboplastin Time] Timed Lab 01/27/25 12:07 Received Platelet Count Q2D Lab 01/28/25 04:00 Ordered Platelet Count Q2D Lab 01/30/25 04:00 Ordered Radiology Impressions Chest X-Ray 01/26/25 18:05 IMPRESSION: No definite acute infiltrate or effusion. Laboratory Results WBC 6.78 10^3/uL (3.29-11.43) 01/27/25 03:36 RBC 4.81 10^6/uL (3.85-5.65) 01/27/25 03:36 Hgb 13.10 g/dL (11.27-16.99) 01/27/25 03:36 Hct 40.7 % (37-53) 01/27/25 03:36 MCV 84.6 fl (82-101) 01/27/25 03:36 MCH 27.2 pg (27-33) 01/27/25 03:36 MCHC 32.2 g/dL (30-55) 01/27/25 03:36 RDW 12.6 % (12.1-15.1) 01/27/25 03:36 Plt Count 200 10^3/cmm (157-399) 01/27/25 03:36 MPV 10.0 fL (7.4-10.4) 01/27/25 03:36 Neut % (Auto) 50.6 % 01/27/25 03:36 Lymph % (Auto) 31.0 % 01/27/25 03:36 [place] % (Auto) 10.0 % 01/27/25 03:36 Eos % (Auto) 7.5 % 01/27/25 03:36 Baso % (Auto) 0.6 % 01/27/25 03:36 Neut # (Auto) 3.43 10^3/uL (1.8-7.7) 01/27/25 03:36 Lymph # (Auto) 2.1 10^3/uL (0.8-4.8) 01/27/25 03:36 [place] # (Auto) 0.7 10^3/uL (0.2-0.9) 01/27/25 03:36 Eos # (Auto) 0.5 10^3/uL (0.0-0.8) 01/27/25 03:36 Baso # (Auto) 0.0 10^3/uL (0.0-0.1) 01/27/25 03:36 Nucleated RBC % (auto) 0 % 01/27/25 03:36 Nucleated RBCs # 0.0 /100WBC 01/27/25 03:36 APTT 124.5 SECONDS (23.9-36.7) H 01/27/25 03:36 Sodium 141 mmol/L (136-145) 01/27/25 03:36 Potassium 3.6 mmol/L (3.5-5.1) 01/27/25 03:36 Chloride 105 mmol/L (98-107) 01/27/25 03:36 Carbon Dioxide 22 mmol/L (22-29) 01/27/25 03:36 Anion Gap 17.6 (5-19) 01/27/25 03:36 BUN 19 mg/dL (6-20) 01/27/25 03:36 Creatinine 0.7 mg/dL (0.7-1.2) 01/27/25 03:36 GFR Calculation 117.1 mL/min (90-130) 01/27/25 03:36 Glucose 102 mg/dL (65-115) 01/27/25 03:36 Estimat Average Glucose 111 01/27/25 03:36 Hemoglobin A1c 5.5 % (4.0-6.0) 01/27/25 03:36 Calculated Osmolality 294 mOsm/kg (285-295) 01/27/25 03:36 Calcium 8.6 mg/dL (8.5-10.5) 01/27/25 03:36 Phosphorus 3.9 mg/dL (2.5-4.5) 01/27/25 03:36 Magnesium 2.1 mg/dL (1.7-2.3) 01/27/25 03:36 Total Bilirubin 0.4 mg/dL (0.15-1.2) 01/27/25 03:36 AST 22 U/L (0-40) 01/27/25 03:36 ALT 38 U/L (0-41) 01/27/25 03:36 Alkaline Phosphatase 76 U/L (40-130) 01/27/25 03:36 Troponin T Baseline 7 ng/L (0-15) 01/26/25 17:55 Troponin T 120 Minute 6.91 ng/L (0-15) 01/26/25 19:57 Delta Troponin T -0.09 ABS# (0-10) L 01/26/25 19:57 Troponin T Hi Sens 6Hr 7.67 ng/L (0-15) 01/27/25 00:20 Troponin T Hi Sens 6Hr Delta 0.67 ng/L (0-12) 01/27/25 00:20 Total Protein 6.1 g/dL (6.6-8.7) L 01/27/25 03:36 Albumin 4.1 g/dL (3.5-5.2) 01/27/25 03:36 Globulin 2.0 g/dL (1.3-4.6) 01/27/25 03:36 Triglycerides 139 mg/dL (0-150) 01/27/25 03:36 Cholesterol 151 mg/dL (0-200) 01/27/25 03:36 LDL Cholesterol, Calc 85 mg/dL (50-129) 01/27/25 03:36 HDL Cholesterol 38 mg/dL (60-100) L 01/27/25 03:36 LDL/HDL Ratio 2.24 RATIO (0.00-3.22) 01/27/25 03:36 Cholesterol/HDL Ratio 3.97 mg/dL (1.0-5.00) 01/27/25 03:36 Procedures Performed Cardiac catheterization Vitals Last Vital Signs Temp 98.0 F 01/27/25 07:39 Pulse 78 01/27/25 07:39 Resp 22 H 01/27/25 07:39 BP 145/94 01/27/25 07:39 Pulse Ox 97 01/27/25 07:39 O2 Del Method Room Air 01/27/25 03:13 Discharge Plan Discharge Patient Disposition: Home Condition: Stable Prescriptions: New metoprolol tartrate 25 mg Tablet 25 mg PO BID@0900,2100 Qty: 60 0RF Continued ascorbic acid (vitamin C) [Vitamin C] 1,000 mg Tablet 1,000 mg PO DAILY fexofenadine [Aida Allergy] 180 mg Tablet 180 mg PO DAILY vitamin B complex Tablet 1 tab PO DAILY [place]-3 350 mg-235 mg- 90 mg-597 mg Capsule,Delayed Release(Dr/Ec) 1 cap PO DAILY Magnesium Complex 300 mg magnesium Tablet 300 mg PO DAILY vitamin D3-vitamin K2 1,250-200 mcg Capsule 1 cap PO DAILY berberine chloride 500 mg Capsule 500 mg PO DAILY vitamin A 2,400 mcg Capsule 2,400 mcg PO DAILY zinc gluconate 100 mg Tablet 100 mg PO Q48H triamcinolone acetonide [Nasacort Allergy] 55 mcg Aerosol,[place] 1 spray INTRANASAL DAILY Rx Instructions: administer into each nostril Blood Sugar Support 150 mcg- 70 mg Capsule 1 cap PO DAILY Discharge Order = DC NOW: Discharge Order (Routine); Ordered 01/27/25 Ordered By: She Montero Discharge Diet: Cardiac Discharge Activity: Resume usual activity Patient Instructions: Angina, Metoprolol (By mouth), Dehydration (DC), Hypertensive Crisis (DC), Opioid Safety, Pain Management, Patient Portal & Kristian Instructions Activity Restrictions/Additional Instructions: Follow-up with PCP as scheduled Discharge Attestations Time Spent in Discharge Care*: greater than 30 min Quality Metrics Clinical Quality Measures [ No reported AMI, CVA or VTE this stay] Coding Level of Care Code Acute Code for Chg Fwd Diagnoses Angina at rest I20.89 Frequent PVCs I49.3 Hypertension I10
--- NOTE | 2025-01-27 16:08 | PC.NURSE ---
12mls of air removed from TR band 2mls at a time, TR band removed at 1545, no oozing, pain, or hematoma noted at site, patient tolerated well. Vital signs stable.
[2025-01-27 16:09] VITALS: BP 167/78; PULSE 77; RESP 16; TEMP 37; O2SAT 98
--- NOTE | 2025-01-27 20:36 | USCV_ITS ---
Mook Garces Age: 54 Gender: M : 1970 Exam Date: 01/27/2025 10:27 Ordering Phys: Shanthi Rodgers MD Technologist: Akhil Skinner Exam Location: [facility] [place] Indication: unstable angina-first time chest pain in a middle- aged male BP: 145 / 94 HR: 65 Rhythm: Sinus Technical Quality: Adequate MEASUREMENTS (Male / Female) Normal Values 2D ECHO LV Diastolic Diameter PLAX 4.6 cm 4.2 - 5.9 / 3.9 - 5.3 cm IVS Diastolic Thickness 1.2 cm 0.6 - 1.0 / 0.6 - 0.9 cm IVS Systolic Thickness 1.5 cm LVPW Diastolic Thickness 1.0 cm 0.6 - 1.0 / 0.6 - 0.9 cm LVPW Systolic Thickness 1.6 cm LVOT Diameter 2.0 cm LV Ejection Fraction 2D Teich 65.7 % LV Ejection Fraction MOD 4C 70.5 % LV Ejection Fraction MOD 2C 69.9 % LV Ejection Fraction 2C AL 69.7 % LA Diameter 3.6 cm RA Systolic Volume 4C AL 35.5 ml RA Systolic Volume 4C MOD 35.1 ml LA Sys Volume AL 59.9 cm cubed LA Sys Volume Index AL 27.1 cm cubed/m squared Aorta at Sinotubular Diameter 3.1 cm IVC Diameter 1.3 cm M-MODE LA Ao Ratio MM 1.0 AV Cusp Separation MM 1.9 cm DOPPLER AV Peak Velocity 107.0 cm/s LVOT Peak Velocity 86.0 cm/s AV Area Cont Eq vti 2.8 cm squared AV Area Cont Eq pk 2.6 cm squared MV Peak Velocity 71.0 cm/s MV Area PHT 4.6 cm squared Mitral E to A Ratio 0.9 TR Peak Velocity 231.0 cm/s TR Peak Gradient 21.3 mmHg TR Mean Velocity 193.0 cm/s TR Mean Gradient 15.3 mmHg TR Velocity Time Integral 57.4 cm PV Peak Velocity 138.0 cm/s RV Ejection Time 0.3 s FINDINGS Left Ventricle Left ventricular normal size. LV systolic function is normal with EF of 60-65%. No regional wall motion abnormalities are seen. Grade 1 diastolic dysfunction. Right Ventricle Normal in size and function Right Atrium Normal in size Left Atrium Normal in size IA Septum Grossly normal Mitral Valve Structurally normal mitral valve. Mild mitral regurgitation. Aortic Valve Structurally normal aortic valve. No significant stenosis. Trace aortic regurgitation. Tricuspid Valve Insufficient TR jet to calculate RVSP Pulmonic Valve Mild pulmonic regurgitation Pericardium Normal Aorta Normal in size IVC Appears to be normal CONCLUSIONS LV systolic function is normal with EF of 60-65% Grade 1 diastolic dysfunction Mild mitral regurgitation. Trace aortic regurgitation. Mild pulmonic regurgitation No comparison studies are available. Georgi Ray MD (Electronically Signed) Final Date: 27 January 2025 12:07 S
== END 2025-01-27 16:12 | disposition home or self-care (01) | DRG 287 ==
LOC: ER 20:28 → CSU 22:03
PROVIDERS: Internal Medicine; Admitting Provider Internal Medicine; Emergency Provider Physician Assistant; Visit Provider Student in an Organized Health Care Education/Training Program
PROC: 4A023N7 Measurement of Cardiac Sampling and Pressure, Left Heart, Percutaneous Approach (ICD-10-PCS; principal; 2025-01-27 09:00)
DX: R07.89 Other chest pain (principal); I49.3 Ventricular premature depolarization; I10 Essential (primary) hypertension; E86.0 Dehydration
CPT/HCPCS: 36415; 71045; 80053; 80061; 83036; 83735; 84100; 84484; 85025; 85730; 93005; 93306; 93458; 96365; 96375; 99152; 99285; C1769; C1887; C1894; J1200; J1644; J2250; J3010; J3490; J7030; J9999; Q9967